=== PATIENT | male | born 1985 | race Caucasian/White ===

== ENCOUNTER → 2016-12-16 | Outpatient (CLI) | payer OTHER ==
[2016-12-16 18:23] LABS: CHOLESTEROL/HDL RATIO 5.6
== END | disposition home or self-care (01) ==
LOC: C.LABMFLN 13:20
PROVIDERS: ATTEND Family Medicine
DX: Z13.1 Encounter for screening for diabetes mellitus (principal); Z13.220 Encounter for screening for lipoid disorders